=== PATIENT | female | born 1945 | race Native Hawaiian/Other Pacific Islander ===

== ENCOUNTER 2017-12-10 11:39 | Day surgery (SDC) | payer OTHER ==
[~2017-12-10] VITALS: Ht 30.5 cm; Wt 0.5 kg
== END 2017-12-10 13:50 | disposition home or self-care (01) ==
LOC: OR 11:39
PROC: 0WJF0ZZ Inspection of Abdominal Wall, Open Approach (ICD-10-PCS; principal; 2017-12-10)
PROC: 0HQ7XZZ Repair Abdomen Skin, External Approach (ICD-10-PCS; 2017-12-10)
DX: T81.89XA Other complications of procedures, not elsewhere classified, initial encounter (principal); E11.9 Type 2 diabetes mellitus without complications
CPT/HCPCS: 87070; 87076; 87205; J1642; J2001; J2250; J2405; J2704